=== PATIENT | female | born 1965 | race African-American/Black ===

== ENCOUNTER 2020-12-24 08:29 | Emergency (ER) | payer MEDICAID ==
[~2020-12-24] VITALS: Ht 157.5 cm; Wt 63.0 kg
[2020-12-24] MEDS ORDERED: KETOROLAC 30MG/ML VIAL IV ONE (09:15)
[2020-12-24 09:30] LABS: CLARITY URINE CLOUDY (CLEAR); COLOR URINE YELLOW (YELLOW); KETONES URINE NEGATIVE (NEGATIVE); LEUKOCYTE ESTERASE URINE TRACE (NEGATIVE); NITRITE URINE POSITIVE (NEGATIVE); OCCULT BLOOD URINE NEGATIVE (NEGATIVE); PROTEIN URINE NEGATIVE (NEGATIVE); SPECIFIC GRAVITY URINE 1.015 (1.005-1.030); UROBILINOGEN URINE 0.2 E.U./dL (0.2-1.0)
[2020-12-24 09:31] LABS: BASOPHILS % 1.4 % (0.0-2.0); CHLORIDE 103 mEq/L (98-107); EOSINOPHILS % 2.2 % (0.0-5.0); HEMATOCRIT. 40.8 % (36.0-48.0); HEMOGLOBIN. 14.1 g/dL (12.0-16.0); LYMPHOCYTES % 36.8 % (20.0-50.0); MEAN CORPUSCULAR VOLUME 98.3 fL (81.0-99.0); MEAN PLATELET VOLUME 7.3 fl (7.4-10.4); MONOCYTES % 8.1 % (2.0-8.0); NEUTROPHILS % 51.5 % (40.0-76.0); PLATELET 344 x1000/uL (130-400); RED BLOOD CELL COUNT 4.16 mill/uL (4.2-5.4); RED CELL DISTRIBUTION WIDTH 13.3 % (11.6-14.6)
[2020-12-24 09:34] LABS: PROTHROMBIN TIME 10.6 sec (9.6-11.0)
[2020-12-24] MEDS ORDERED: TOPUD PO (11:43)
[2020-12-24] MEDS ORDERED: NITR100C PO (11:43)
[2020-12-24 12:09] VITALS: BP 110/77
== END 2020-12-24 12:10 | disposition home or self-care (01) ==
LOC: ER 08:29
DX: J02.8 Acute pharyngitis due to other specified organisms (principal); B97.89 Other viral agents as the cause of diseases classified elsewhere; N39.0 Urinary tract infection, site not specified; Z98.890 Other specified postprocedural states
CPT/HCPCS: 36415; 71045; 80053; 81003; 83690; 85025; 85610; 87070; 87430; 93005; 96374; 99285; J1885